=== PATIENT | male | born 1935 | race Caucasian/White ===

== ENCOUNTER → 2019-11-12 | Outpatient (CLI) | payer MEDICARE ==
[~2019-11-12] MED LIST: ZOLPIDEM 5 MG TABLET. PO ONE
--- NOTE | 2019-11-14 15:53 | SLEEP ---
DATE OF STUDY: 11/12/2019 SLEEP STUDY REFERRING PHYSICIAN: Christopher Bautista MD PRIMARY CARE PHYSICIAN: Portillo Guerra MD The patient is an 84-year-old old who weighs 210 pounds with a BMI of 28. The patient's Endeavor score was 10. The patient underwent split night study performed at [facility]. During the night of the study, the patient spent 457 minutes in bed and slept for 289 minutes with a sleep efficiency of 63%. Sleep latency was 11 minutes with a REM latency of 244 minutes. Sleep architecture showed increased stage 1 and stage 2 sleep, normal slow wave and reduced REM sleep. During the initial diagnostic portion of the study, the patient slept for 76 minutes. During that time, there were 5 mixed apneas, no central apneas, 2 obstructive apneas and 38 hypopneas. The patient's apnea hypopnea index was 36 per hour with a supine index of 140 per hour and REM index was not seen due to lack of REM sleep during the diagnostic portion. EKG monitoring revealed an average heart rate of 77 beats per minute. Frequent PVCs were seen. PLMs were seen at index of 103 per hour and 6 per hour caused EEG arousals. Nocturnal oximetry study revealed a mean oxygen saturation of 96% with the lowest of 86%. Only 0.5 minutes were spent in oxygen saturation less than 90%. The patient met the criteria for CPAP initiation. It was started at 5 cm water and titrated up to 16 cm water. At the final pressure, the patient slept for 81 minutes. The patient had supine as well as REM sleep. The patient's AHI was reduced to 1 per hour and oxygen saturation remained above 93%. IMPRESSION: 1. Severe sleep apnea-hypopnea syndrome at an AHI of 36 per hour. 2. No clinically significant nocturnal hypoxia. 3. Severe PLMs. 4. Abnormal EKG consistent with PVCs throughout. RECOMMENDATIONS: 1. CPAP at 16 cm water completely eliminated the patient's sleep apnea and should be used on a nightly basis. 2. Follow up in 4-6 weeks to assess compliance with CPAP and to document clinical improvement. 3. Weight loss is strongly advised. 4. Avoid [employer] depressants. 5. Cautioned regarding driving until symptoms of sleep apnea resolve with the use of CPAP. 6. The patient should also be followed up with Cardiology regarding abnormal EKG. 7. The patient should also be further evaluated for symptoms of restless legs during the day. JACQUELINE MICHAELS MD DR: ANIRUDH/serene JOB#: [id number] / [id number] PORTILLO Garcia MD, GEORGE MD
== END | disposition home or self-care (01) ==
LOC: RT 19:06
PROVIDERS: ATTEND Internal Medicine Pulmonary Disease
DX: G47.33 Obstructive sleep apnea (adult) (pediatric) (principal); G47.61 Periodic limb movement disorder
CPT/HCPCS: 95810